=== PATIENT | female | born 1990 | race Native Hawaiian/Other Pacific Islander ===

== ENCOUNTER 2016-12-18 02:36 | Emergency (ER) | payer OTHER ==
[~2016-12-18] VITALS: Ht 149.9 cm; Wt 67.8 kg
[2016-12-18] MEDS ORDERED: BENZONATATE 100 MG CAP PO ONE (05:30)
[2016-12-18] MEDS ORDERED: IPRATROPIUM 0.5MG/ALBUTEROL 2.5MG INH SOL UD 3ML (DUONEB)(J7620) NEB ONE (05:30)
[2016-12-18] MEDS ORDERED: ALBUTEROL 90 MCG/ACT 8GM HFA INHALER INH ONE (07:00)
[2016-12-18 07:03] VITALS: BP 115/68
== END 2016-12-18 07:00 | disposition home or self-care (01) ==
LOC: M ED 02:36
DX: O99.513 Diseases of the respiratory system complicating pregnancy, third trimester (principal); J06.9 Acute upper respiratory infection, unspecified; J45.909 Unspecified asthma, uncomplicated; Z3A.30 30 weeks gestation of pregnancy

== ENCOUNTER 2017-01-14 00:49 | Inpatient (IN) | payer OTHER ==
[~2017-01-14] VITALS: Ht 149.9 cm; Wt 65.4 kg
[2017-01-14 00:58] VITALS: BP 138/91
[2017-01-14 01:00] VITALS: BP 129/87
[2017-01-14] MEDS ORDERED: LR 1,000 ML IV SCH (01:58)
[2017-01-14] MEDS ORDERED: PENICILLIN G POTASSIUM IV 5 MU in D5W MINI-BAG PLUS 100 ML IV STA (01:58)
[2017-01-14] MEDS ORDERED: LACTATED RINGER'S 1000 ML IV ONE (02:00)
[2017-01-14] MEDS ORDERED: OXYTOCIN INJ 10 UNITS/ML VIAL (J2590) As Ordered ONE (02:05)
[2017-01-14] MEDS ORDERED: OXYTOCIN 30 UNITS IN 0.9% NaCl 500ML IV BAG (J2590) As Ordered ONE (02:05)
[2017-01-14] MEDS ORDERED: PROMETHAZINE INJ 25 MG/ML VIAL (J2550) IM ONE (02:15)
[2017-01-14] MEDS ORDERED: BUTORPHANOL 2 MG/ML INJ (J0595) IV ONE (02:15)
[2017-01-14] MEDS ORDERED: BUTORPHANOL 2 MG/ML INJ (J0595) As Ordered ONE (02:17)
[2017-01-14] MEDS ORDERED: PROMETHAZINE INJ 25 MG/ML VIAL (J2550) As Ordered ONE (02:18)
[2017-01-14 02:27] LABS: MEAN CORPUSCULAR HGB CONC 34.2 g/dl (32.0-36.5); MEAN CORPUSCULAR VOLUME 87.7 fl (80.0-96.0); PLATELET COUNT, AUTOMATED 307 10^3/uL (150-450); RED CELL DISTRIBUTION WIDTH 12.8 % (11.5-14.5); WHITE BLOOD COUNT 18.8 10^3/uL (4.0-10.0)
[2017-01-14 03:26] LABS: CORD GAS ABE V -3.1; CORD GAS HCO3 A 22.8 MEQ/L; CORD GAS HCO3 V 22.5 MEQ/L; CORD GAS O2 SAT A 34.1 %; CORD GAS O2 SAT V 36.4 %; CORD GAS PCO2 A 43.3 mmHg; CORD GAS PCO2 V 41.9 mmHg; CORD GAS PH A 7.339 UNITS; CORD GAS PH V 7.347 UNITS; CORD GAS PO2 A 16.1 mmHg; CORD GAS SBC A 20.4 MEQ/L; CORD GAS SBC V 20.4 MEQ/L; CORD GAS TCO2 A 24.1 MEQ/L; CORD GAS TCO2 V 23.7 MEQ/L
[2017-01-14 03:28] VITALS: BP 131/81
[2017-01-14 03:42] VITALS: BP 126/77
[2017-01-14] MEDS ORDERED: IBUPROFEN 800 MG TAB As Ordered ONE (04:37)
[2017-01-14] MEDS ORDERED: OXYTOCIN DRIP 30 UNITS in APPROPRIATE DILUENT 1 EA IV SCH (04:56)
[2017-01-14] MEDS ORDERED: LIDOCAINE 1% MDV INJ 50 ML VIAL INFIL ONE (05:00)
[2017-01-14] MEDS ORDERED: ACETAMINOPHEN 500 MG TAB PO PRN (05:00)
[2017-01-14] MEDS ORDERED: DIBUCAINE 1% OINTMENT 30GM TOP PRN (05:00)
[2017-01-14] MEDS ORDERED: METHYLERGONOVINE MALEATE 0.2 MG TAB PO PRN (05:00)
[2017-01-14] MEDS ORDERED: RHOGAM 300 MCG (1500 IU) INJ (J2790) IM SCH (05:00)
[2017-01-14] MEDS ORDERED: MEASLES,MUMPS,RUBELLA VACCINE INJ (MMR-II) (90707) SC SCH (05:00)
[2017-01-14] MEDS ORDERED: OXYTOCIN INJ 10 UNITS/ML VIAL (J2590) IV ONE (05:00)
[2017-01-14] MEDS ORDERED: DOCUSATE SODIUM 100 MG CAP PO PRN (05:00)
[2017-01-14] MEDS ORDERED: ANUSOL HC CREAM 30GM TOP PRN (05:00)
[2017-01-14] MEDS ORDERED: MOM 30ML SUSPENSION UDC PO PRN (05:00)
[2017-01-14 05:55] VITALS: BP 119/61
[2017-01-14] MEDS ORDERED: PENICILLIN G POTASSIUM IV 2.5 MU in D5W 100 ML IV SCH (06:30)
[2017-01-14] MEDS: PRENATAL VITAMINS CHEWABLE TABLET PO SCH (09:07)
--- NOTE | 2017-01-14 09:41 | DN ---
DATE: 01/14/2017 A 26-year-old 1, comes in at 37 and 3 weeks of gestation, spontaneous labor, 6 cm dilated, bulging membranes. She had a spontaneous vaginal delivery with local anesthetic of a male, 5 pounds 10 ounces, 2550 grams, scores of 8 and 9 at one and five minutes respectively. Arterial pH 7.33, base excess -3.0, venous pH 7.34, base excess -3.1. Cord was around the neck once, loose. Her risk factor is that she had an isolated EIF, and she has low weight gain. The placenta delivered spontaneously thereafter. Three-vessel cord and membranes and tissues intact. Uterus contracted well down on Pitocin. EXAMINATION: She had a small vaginal tear, which was oversewn in the usual fashion with #2-0 Vicryl on a J339, was basically a vulvar abrasion. The sphincter was intact. The rest of the vaginal examination was normal. In summary, we have a term gestation, delivered a live male infant in good condition. Copy To: [facility]
[2017-01-14] MEDS: IBUPROFEN 800 MG TAB PO PRN (18:07)
[2017-01-14 18:13] VITALS: BP 129/83
--- NOTE | 2017-01-14 21:11 | HPE ---
DATE OF ADMISSION: 01/14/2017 26-year-old 1, para 0, last menstrual period (LMP) uncertain at February 2016, estimated date of confinement (EDC) by early ultrasound 10 weeks 1 day, 01/31/2017, 37 and 3 in active labor, 6 cm, bulging membranes. Risk factors: Asthma, low weight, isolated echogenic intracardiac focus (EIF) on ultrasound and GBS status is unknown. Labs are O positive, HIV negative, hepatitis negative, RPR negative, rubella immune. Varicella immune. Pap normal. Urine negative. Gonorrhea and chlamydia are negative. 1-hour glucose 109. GBS status is pending. On examination, distressed female. Symphysis fundus height is 40, vertex, 6 cm, bulging membranes. Hemoglobin 15.5, hematocrit 45.0, platelets 307. Urine 1.015, pH 6, negative. Blood pressure 138/91, respirations 20, pulse 94, temperature 98.1. The rest of the examination is unremarkable. She is normocephalic, atraumatic. Neck full range of motion. Pupils equal and reactive to light. Distal pulses are symmetric. No evidence of deep venous thrombosis (DVT), pulmonary embolus (PE) or superficial phlebitis. Lungs are clear bilaterally to bases. No wheezes or rhonchi. No costovertebral angle (CVA) tenderness. Four quadrant bowel sounds. Appropriate symphysis fundus height. Category one strip. No rashes, lesions or pruritus. No arthralgia, myalgia. No complaints of cough, wheezes, shortness of breath or dyspnea on exertion. No chest pain. No bleeding. Neurologically complete. No incontinence, urgency or frequency. No nausea, vomiting, diarrhea or constipation. No diabetic issues. 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 Past medical, surgical history is negative. Family history in the fact that she is adopted, but her adopting parents, her father of diabetes and her mother of an aneurysm. She does not smoke or drink, does not abuse drugs. She is . No domestic violence. In summary, we have a 37 and 3 in active labor, 6 cm. Group B Streptococcus (GBS) status is pending. Plan is for GBS prophylaxis, intravenous (IV) medications for pain. Anticipate vaginal delivery.
--- NOTE | 2017-01-14 21:12 | IPN ---
DATE OF SERVICE: 01/14/2017 This patient requested circumcision of a male . She is awaiting her 's response. He is in [place] and because of time difference she has not been able to get a hold of him. In any case, we discussed the medical, nonmedical indications, penile block, aftercare, risks and benefits. The patient expressed understanding of risks and benefits, penile block and aftercare, medical and nonmedical indications. All questions were answered. She is just waiting for her 's involvement in the decision and we will await the medical clearance by the frame bander.
[2017-01-15 06:00] VITALS: BP 112/65
[2017-01-15 07:03] LABS: MEAN CORPUSCULAR HEMOGLOBIN 30.1 pg (27.0-33.0); MEAN CORPUSCULAR HGB CONC 33.9 g/dl (32.0-36.5); MEAN CORPUSCULAR VOLUME 88.8 fl (80.0-96.0); PLATELET COUNT, AUTOMATED 283 10^3/uL (150-450); RED CELL DISTRIBUTION WIDTH 12.9 % (11.5-14.5); WHITE BLOOD COUNT 19.3 10^3/uL (4.0-10.0)
[2017-01-15] MEDS: PRENATAL VITAMINS CHEWABLE TABLET PO SCH (08:55)
--- NOTE | 2017-01-15 08:57 | IPN ---
DATE: 01/15/2017 This lady is a 26-year-old 1 now para 1 who came in at 37 and 3 weeks of gestation in spontaneous labor, 6 cm dilated with bulging membranes. She had a spontaneous vaginal delivery live male infant 5 pounds 10 ounces, 2550 grams, as of 8 and 9 at one and five minutes respectively. The arterial pH was 7.33, base excess -3.0 and venous pH 7.34, base excess -3.1. Admitting hemoglobin was 15.4, hematocrit 45.0, platelets 307. day hemoglobin 12.9, hematocrit 38.0, platelets 283. Her vital signs today, her blood pressure is 112/65, respiration 20, pulse 65, temperature 98.2. We discussed phlebitis, cystitis, mastitis, endometritis and cellulitis, diet, exercise, pain management, perineal, breast and wound care. She is uncertain of the method control and will discuss this with her 6-week checkup. She is anxious for discharge tomorrow. In summary we have a term gestation delivered a live male . Plan: Discharge with medications tomorrow.
[2017-01-15] MEDS ORDERED: INFLUENZA QUADRIVALENT PF VACCINE 0.5ML SYRINGE (90686) IM ONE (09:00)
[2017-01-15] MEDS: IBUPROFEN 800 MG TAB PO PRN (14:56)
[2017-01-15 18:16] VITALS: BP 116/78
[2017-01-16 06:00] VITALS: BP 92/55
[2017-01-16] MEDS ORDERED: IBUP-1114 PO (08:18)
[2017-01-16] MEDS ORDERED: ACET50TA PO (08:18)
[2017-01-16] MEDS ORDERED: COLA100C5 PO (08:19)
[2017-01-16] MEDS: PRENATAL VITAMINS CHEWABLE TABLET PO SCH (08:35)
[2017-01-16] MEDS ORDERED: INFLUENZA QUADRIVALENT PF VACCINE 0.5ML SYRINGE (90686) IM ONE (10:45)
== END 2017-01-16 12:15 | disposition home or self-care (01) | DRG 775 ==
LOC: M LDO 00:49 → M LDI 01:42 → M OBS 05:15
PROVIDERS: ADMIT Obstetrics & Gynecology; ATTEND Obstetrics & Gynecology
PROC: 10E0XZZ Delivery of Products of Conception, External Approach (ICD-10-PCS; principal; 2017-01-14)
DX: O69.82X0 Labor and delivery complicated by other cord entanglement, without compression, not applicable or unspecified (principal); Z37.0 Single live birth; Z3A.37 37 weeks gestation of pregnancy